=== PATIENT | male | born 1980 | race Caucasian/White ===

== ENCOUNTER 2018-09-21 23:49 | Emergency (ER) | payer BC, OTHER ==
[~2018-09-21] VITALS: Ht 188 cm; Wt 69.9 kg
[~2018-09-21 23:49] MED LIST: HYDR-3720 PO; HYDR1CAP2 PO; NAPR250T34 PO; PENI500T PO
--- NOTE | 2018-09-21 23:50 | NUR ---
2344: LEVEL 1 TRAUMA ACTIVATION. 2350: PT ARRIVES VIA [facility]. PT NOTED TO BE THRASHING ALL FOUR EXTREMITIES. MAINTAINES AIRWAY WITH LABORED BREATHING NOTED. INITIAL GCS 7. 2353: PULLED OUT 18G IV TO RT FOREARM WITH THRASHING MOVEMENT. 2355: 18G IV TO RT A/C ACCESSED. 2356: 4MG VERSED ADM 2357: BP 148/95 P 106 RESP 30 O2 96% VIA 6L NC RECTAL TEMP 98.1. 2359: 100MG SUCCINYLCHOLINE ADM 2359: 4MG VERSED ADM 0006: 100MG ROCURONIUM ADM 0006: 2MG VERSED ADM 0010: CHEST XRAY 0016: 18G IV TO LT A/C ACCESSED BY GERRY MARTINEZ. 0018: 16FR MCCORMACK CATHETER PLACED. URINARY SPECIMEN SENT TO LAB. 0024: DIPRIVAN INITIATED TO RT A/C @ 30MCG/KG/MIN.
[2018-09-21] MEDS ORDERED: SUCCINYLCHOLINE INJ 100 MG/5 ML SYR INJ ONE (23:51)
[2018-09-21] MEDS ORDERED: ROCURONIUM 10 MG/ML 5 ML SYRINGE IV ONE (23:51)
[2018-09-21] MEDS ORDERED: MIDAZOLAM 5 MG/5 ML (VERSED) VIAL INJ ONE (23:51)
--- OUTSIDE RECORDS SUMMARY | 2018-09-21 23:54 | XMS REPORT ---
Author Author AJ ROLLINS [facility] Address Unknown Care Team Providers Care Presser Hand Name Role Phone RIA AJ Unavailable PROBLEMS Unknown Problems ALLERGIES No Known Allergies ENCOUNTERS Encounter Location Date Diagnosis [facility] [address] [facility] [id number] [id number] May, Dental examination Z01.20 and Dental caries K02.9 [facility] [address] [id number] [id number] Apr, IMMUNIZATIONS No Known Immunizations SOCIAL HISTORY Never Assessed REASON FOR VISIT CECILIA PLAN OF CARE Activity Details Follow Up prn Reason:hygiene VITAL SIGNS Blood pressure systolic 122 mmHg 2017-06-22 Blood pressure diastolic 88 mmHg 2017-06-22 MEDICATIONS No Known Medications RESULTS No Results PROCEDURES Procedure Date Ordered Result Body Site LTD ORAL EVALUATION - PROBLEM FOCUS Jun 22, 2017 INTRAORL-PERIAPICAL 1 FILM [id number] Jun 22, 2017 EXTRAC ERUPTED TOOTH/EXPOSED ROOT Jun 22, 2017 BITEWING - SINGLE FILM Jun 22, 2017 INSTRUCTIONS MEDICATIONS ADMINISTERED No Known Medications
[2018-09-22] MEDS ORDERED: PROPOFOL DRIP (ICU) 100 ML IV ONE ×2 (00:19→02:10)
[2018-09-22] MEDS: PROPOFOL DRIP (ICU) 100 ML IV SCH ×2 (00:24→02:35)
--- NOTE | 2018-09-22 00:24 | NUR ---
0024: PT TO CT. STAFF PRESENT INCLUDE GARY, RN. KLEBER, RN. SKY, RAD. LIZZIE, RADJustine ASHTON, RT. DORINDA, RT. DR. ENGLE. RAQUEL, PHARMACOGENETICIST. 0040: WHILE IN CT, VITAL SIGN MONITOR BATTERY DIES AND PREVIOUS V/S ARE LOST. 0050: RETURN FROM CT TO ROOM #3. 0108: 18FR OG PLACED BESIDE ET TUBE. 0108: XRAY CONFIRMATIN OF OG TUBE REVIEWED BY DR. RICHTER. 0112: BACKBOARD CLEARED BY DR. ENGLE. 0118: TETANUS IM INJECTION TO RT DELTOID. 0127: FAMILY @ BEDSIDE.
[2018-09-22 00:28] LABS: HEMOGLOBIN 15.7 G/DL (13.3-17.7); MEAN PLATELET VOLUME 9.2 FL (7.4-10.4); RED CELL DISTRIBUTION WIDTH 13.6 % (10.0-14.5)
[2018-09-22] MEDS ORDERED: TETANUS,DIPTH,PERTUSS P/F (BOOSTRIX) 0.5 ML VIAL IM ONE (00:30)
[2018-09-22 00:36] LABS: BILIRUBIN,URINE NEGATIVE (NEGATIVE); CLARITY,URINE CLEAR; COLOR,URINE YELLOW; GLUCOSE, URINE (UA) 1+ (NEGATIVE); KETONES,URINE 1+ (NEGATIVE); LEUKOCYTE ESTERASE ,URINE NEGATIVE (NEGATIVE); NITRITE,URINE NEGATIVE (NEGATIVE); PH,URINE 5 (5-9); PROTEIN,URINE 4+ (NEGATIVE); UROBILINOGEN,URINE NORMAL (NORMAL)
[2018-09-22 00:48] LABS: ALANINE AMINOTRANSFERASE 18 U/L (0-55); ALBUMIN 4.9 GM/DL (3.2-4.5); ALKALINE PHOSPHATASE 81 U/L (40-136); AMPHETAMINE SCREEN, URINE NEGATIVE (NEGATIVE); BARBITURATE SCREEN URINE NEGATIVE (NEGATIVE); BENZODIAZEPINES SCREEN URINE NEGATIVE (NEGATIVE); BILIRUBIN,DIRECT 0.2 MG/DL (0.0-0.3); BILIRUBIN,INDIRECT 0.1 MG/DL; BILIRUBIN,TOTAL 0.3 MG/DL (0.1-1.0); BUN/CREATININE RATIO 8; CANNABINOID SCREEN, URINE POSITIVE (NEGATIVE); CARBON DIOXIDE 14 MMOL/L (21-32); CHLORIDE 109 MMOL/L (98-107); COCAINE SCREEN URINE NEGATIVE (NEGATIVE); CREATINE KINASE 327 U/L (30-200); CREATININE SERUM 1.16 MG/DL (0.60-1.30); GFR ESTIMATED > 60; GLUCOSE 168 MG/DL (70-105); MAGNESIUM 2.2 MG/DL (1.8-2.4); METHADONE STAT NEGATIVE (NEGATIVE); METHAMPHETAMINE SCREEN URINE S NEGATIVE (NEGATIVE); OPIATE SCREEN URINE NEGATIVE (NEGATIVE); OXYCODONE STAT NEGATIVE (NEGATIVE); PHOSPHORUS 3.8 MG/DL (2.3-4.7); POTASSIUM 3.1 MMOL/L (3.6-5.0); PROPOXYPHENE STAT NEGATIVE (NEGATIVE); SODIUM 147 MMOL/L (135-145); TOTAL PROTEIN 7.9 GM/DL (6.4-8.2); TRICYCLIC ANTIDEPRESSANTS SCRE NEGATIVE (NEGATIVE)
[2018-09-22 00:49] LABS: FIBRIN DEGRADATION PRODUCTS 0.47 UG/ML (0.00-0.49); PROTHROMBIN TIME PATIENT 13.7 SEC (12.2-14.7)
[2018-09-22 00:52] LABS: AMORPHOUS SEDIMENT,UR LARGE AMOR URATES /LPF; BACTERIA,URINE TRACE /HPF
--- NOTE | 2018-09-22 00:53 | ED Trauma-Multisystem ---
General Stated Complaint: FOUND HANGING Source of Information: EMS, Family Exam Limitations: Other (PT IS OBTUNDED) History of Present Illness Date Seen by Provider: September 21, 2018 Time Seen by Provider: 23:50 Initial Comments PT ARRIVES VIA EMS FROM HOME PT WAS FOUND BY FATHER, HANGING FROM A 1/2 " NYLON ROPE AROUND HIS NECK FATHER STATES HE WAS UNCONSCIOUS AND HIS TONGUE WAS HANGING OUT AND HE WAS NOT MOVING DAD CUT HIM DOWN WITH A ROPE AND EASED HIM DOWN AND LAID HIM ON THE FLOOR DAD STATES HE WAS NOT MOVING, AND DESCRIBES SOME AGONAL TYPE BREATHING INITIALLY , THEN BREATHING IMPROVED A LITTLE DAD STATES THAT THEY BELIEVE THAT HE WAS DRINKING TONIGHT, AND ARE NOT SURE WHAT HE WAS DRINKING OR HOW MUCH DAD STATES THAT THERE HAD BEEN SOME ARGUING, AND PT WENT OUT TO THE SHOP/GARAGE DAD STATES IT WAS APPROXIMATELY "15-20 MINUTES" LATER, THAT HE WENT OUT TO THE SHOP/GARAGE TO CHECK ON HIM AND FOUND HIM HANGING FAMILY DESCRIBES POSTURING, WITH ARMS DRAWN IN PT ALSO HAS SUPERFICIAL CUTS TO HIS RIGHT FOREARM FAMILY REPORTS THAT A YEAR OR TWO AGO, HE DID TRY TO CUT HIS ARM, BUT NEVER WENT THROUGH WITH IT FAMILY STATES HE HAS NEVER SOUGHT ANY KIND OF MENTAL HEALTH CARE THEY DO STATE THAT "SOMETIMES HE GETS IN THESE MOODS" BUT DO NOT ELABORATE FAMILY STATES THAT PT HAS LIVED WITH THEM FOR THE LAST 15 YEARS, AND THEY DO NOT ALLOW DRUGS OR ALCOHOL IN THE HOME AND TO THEIR KNOWLEDGE PT HAS NOT USED EITHER, IN THAT TIME THEY DO REPORT THAT HE USED TO DRINK AND USE METH EMS REPORT THAT PT WAS UNCONSCIOUS AND NOT MOVING WHEN THEY ARRIVED PT ARRIVES IN C-COLLAR EMS REPORT THAT LIGATURE CRUMP ARE AROUND HIS NECK JUST BELOW HIS CAIN EMS REPORTS THAT ENROUTE, PT BEGAN TO TWITCH AND THRASH ABOUT, AND HAD DECORTICATE-TYPE POSTURING PT IS DIAPHORETIC ON ARRIVAL AND THEY REPORT THAT THAT HAS SIGNIFICANTLY INCREASED ENROUTE. EMS REPORT THAT IT APPEARS THAT HE BIT HIS TONGUE AND THERE IS DRIED BLOOD IN HIS MOUTH AND ON HIS LIPS ACCUCHECK 119 BY EMS 2345--DR. COHEN, TRAUMA SURGEON, CONTACTED PRIOR TO ARRIVAL, FOR LEVEL 1 TRAUMA ACTIVATION Allergies and Home Medications Allergies Coded Allergies: No Known Drug Allergies (Unverified Allergy, Mild, 01/27/09) Home Medications Hydrocodone Bit/Acetaminophen 1 Each Capsule, 1 EACH PO Q4H Prescribed by: GILMA NEIL MD on 03/24/091900 Penicillin V Potassium 500 Mg Tablet, 1 TAB PO TID Prescribed by: GILMA NEIL MD on 03/24/091900 Patient Home Medication List Home Medication List Reviewed: Yes Review of Systems Review of Systems Constitutional: other (UNABLE TO OBTAIN) Past Evnfjhy-Todral-Uqshvo Hx Patient Social History Alcohol Use: Past History (PER PARENTS ON 09/22/18) Recreational Drug Use: Yes (METH BY HISTORY, PER PARENTS ON 09/22/18) Drug of Choice: HX OF METH USE, PER PARENTS ON 09/22/18 Smoking Status: Current Everyday Smoker (1 PPD) Type Used: Cigarettes Recent Foreign Travel: No Contact w/Someone Who Travel: No Immunizations Up To Date Tetanus Booster (TDap): Unknown Past Medical History Surgeries: No Respiratory: No Cardiac: No Neurological: No Genitourinary: No Gastrointestinal: No Musculoskeletal: No Endocrine: No HEENT: No Cancer: No Psychosocial: Yes (SUICIDE ATTEMPT BY HANGING 09/21/18) Suicide Attempts Physical Exam Vital Signs Vital Signs - First Documented 09/21/18 23:50 Pulse Ox 96 O2 Delivery Nasal Cannula O2 Flow Rate 6.00 Height, Weight, BMI Height: '" Weight: lbs. oz. kg; BMI Method: General Appearance: Severe Distress, Other (PT OBTUNDED, THRASHING AND JERKING WITH SOME DECORTICATE POSTURING, HEAD AND EYES DEVIATED TO RIGHT, PT IS PROFUSELY DIAPHORETIC; REEKS OF ETOH) Head: No Evidence of Injury Eyes: Bilateral Eye Other (PUPILS 5MM AND EQUAL BUT NON-REACTIVE, EYES DEVIATED TO RIGHT) Ears, Nose, Throat: Other (DRIED BLOOD ON TONGUE AND LIPS. ) Neck: Other (PT IN CERVICAL COLLAR ON ARRIVAL--UNABLE TO VIEW NECK, TRACHEA IS MIDLINE AND NO CREPITANCE OR SUB Q AIR NOTED. ) Cardiovascular: Tachycardia Respiratory: Other (HYPERVENTILATING) Gastrointestinal: Soft Skin: Cool, Diaphoresis, Pallor [place] Coma Score Best Eye Response ([place]): (1) No Response Best Verbal Response ([place]): (1) No Verbal Response Best Motor Response ([place]): (1) No Motor Response (PT IS THRASHING AND JERKING AND HAS DECORTICATE POSTURING, BUT DOES NOT ACTUALLY REACT TO PAIN STIMULUS) Focused Exam Lactate Level 09/22/18 01:17: Lactic Acid Level 4.73*H Lactic Acid Level Laboratory Tests Test 09/22/18 01:17 Lactic Acid Level 4.73 MMOL/L (0.50-2.00) *H Procedures/Interventions Intubation Method: orotracheal Tube Size: 7.5 Medications: Rocuronium, Succinylcholine, Versed Positive End Tide CO2: Yes Breath Sounds after Intubation: bilateral-equal Intubation Complications: no complications Post Intubation Xray: Yes (ADEQUATE TUBE PLACEMENT) INTUBATION ATTEMPTS X 2 UNSUCCESSFUL BY MOLD SANDER, PRIOR TO DIRECTOR DERMATOLOGY ARRIVAL SUCCESSFUL INTUBATION WITH DIRECTOR DERMATOLOGY ASSIST USING GLIDESCOPE X 1 ATTEMPT Progress/Results/Core Measures Results/Orders Lab Results Laboratory Tests Test 09/22/18 00:17 09/22/18 01:03 09/22/18 01:17 09/22/18 01:50 Range/Units White Blood Count 16.0 H 4.3-11.0 10^3/uL Red Blood Count 4.91 4.35-5.85 10^6/uL Hemoglobin 15.7 13.3-17.7 G/DL Hematocrit 45 40-54 % Mean Corpuscular Volume 93 80-99 FL Mean Corpuscular Hemoglobin 32 25-34 PG Mean Corpuscular Hemoglobin Concent 35 32-36 G/DL Red Cell Distribution Width 13.6 10.0-14.5 % Platelet Count 304 130-400 10^3/uL Mean Platelet Volume 9.2 7.4-10.4 FL Prothrombin Time 13.7 12.2-14.7 SEC INR Comment 1.0 0.8-1.4 Activated Partial Thromboplast Time 24 24-35 SEC Fibrinogen 346 221-496 MG/DL D-Dimer 0.47 0.00-0.49 UG/ML Urine Color YELLOW Urine Clarity CLEAR Urine pH 5 5-9 Urine Specific [place] 1.025 H 1.016-1.022 Urine Protein 4+ NEGATIVE Urine Glucose (UA) 1+ H NEGATIVE Urine Ketones 1+ H NEGATIVE Urine Nitrite NEGATIVE NEGATIVE Urine Bilirubin NEGATIVE NEGATIVE Urine Urobilinogen NORMAL NORMAL MG/DL Urine Leukocyte Esterase NEGATIVE NEGATIVE Urine RBC (Auto) 2+ H NEGATIVE Urine RBC 5-10 H /HPF Urine WBC NONE /HPF Urine Crystals PRESENT H /LPF Urine Amorphous Sediment LARGE RADHA URATES H /LPF Urine Bacteria TRACE /HPF Urine Casts PRESENT /LPF Urine Hyaline Casts 10-25 H /LPF Urine Coarse Granular Casts 0-2 H /LPF Urine Mucus NEGATIVE /LPF Urine Culture Indicated NO Sodium Level 147 H 135-145 MMOL/L Potassium Level 3.1 L 3.6-5.0 MMOL/L Chloride Level 109 H 98-107 MMOL/L Carbon Dioxide Level 14 L 21-32 MMOL/L Anion Gap 24 H 5-14 MMOL/L Blood Urea Nitrogen 9 7-18 MG/DL Creatinine 1.16 0.60-1.30 MG/DL Estimat Glomerular Filtration Rate > 60 BUN/Creatinine Ratio 8 Glucose Level 168 H 70-105 MG/DL Calcium Level 9.0 8.5-10.1 MG/DL Phosphorus Level 3.8 2.3-4.7 MG/DL Magnesium Level 2.2 1.8-2.4 MG/DL Total Bilirubin 0.3 0.1-1.0 MG/DL Direct Bilirubin 0.2 0.0-0.3 MG/DL Indirect Bilirubin 0.1 MG/DL Aspartate Amino Transf (AST/SGOT) 26 5-34 U/L Alanine Aminotransferase (ALT/SGPT) 18 0-55 U/L Alkaline Phosphatase 81 40-136 U/L Total Creatine Kinase 327 H 30-200 U/L Troponin I < 0.028 <0.028 NG/ML Total Protein 7.9 6.4-8.2 GM/DL Albumin 4.9 H 3.2-4.5 GM/DL Urine Opiates Screen NEGATIVE NEGATIVE Urine Oxycodone Screen NEGATIVE NEGATIVE Urine Methadone Screen NEGATIVE NEGATIVE Urine Propoxyphene Screen NEGATIVE NEGATIVE Urine Barbiturates Screen NEGATIVE NEGATIVE Ur Tricyclic Antidepressants Screen NEGATIVE NEGATIVE Urine Phencyclidine Screen NEGATIVE NEGATIVE Urine Amphetamines Screen NEGATIVE NEGATIVE Urine Methamphetamines Screen NEGATIVE NEGATIVE Urine Benzodiazepines Screen NEGATIVE NEGATIVE Urine Cocaine Screen NEGATIVE NEGATIVE Urine Cannabinoids Screen POSITIVE H NEGATIVE Serum Alcohol 93 H <10 MG/DL Blood Gas Puncture Site LT RAD RT RAD Blood Gas Patient Temperature 37 C 97.1 Arterial Blood pH 7.08 *L 7.32 *L 7.37-7.43 Arterial Blood Partial Pressure CO2 79 *H 44 35-45 MMHG Arterial Blood Partial Pressure O2 450 H 82 79-93 MMHG Arterial Blood HCO3 22 L 22 L 23-27 MMOL/L Arterial Blood Total CO2 24.8 23.6 21.0-31.0 MMOL/L Arterial Blood Oxygen Saturation 100 96 94-100 % Arterial Blood Base Excess -6.3 L -3.1 L -2.5-2.5 MMOL/L [place] Test YES-POS YES-POS Blood Gas Ventilator Setting YES YES Blood Gas Inspired Oxygen 100% 40% Lactic Acid Level 4.73 *H 0.50-2.00 MMOL/L My Orders Orders - YESI RICHTER DO Chest 1 View, Ap/Pa Only (09/22/18 ) Ct Head/Cervical Spine Wo (09/22/18 ) Ed Iv/Invasive Line Start (09/22/18 00:12) Ekg Tracing (09/22/18 00:12) Catheter(Urinary) Insert & Ass 03,15 (09/22/18 00:12) Ng Tube Insert & Assessment (09/22/18 00:12) O2 (09/22/18 00:12) Monitor-Rhythm Ecg Trace Only (09/22/18 00:12) Ct Chest Wo (09/22/18 ) Dipht,Pertuss(Acell),Tet Adult (Boostrix (09/22/18 00:30) Cbc No Diff (09/22/18 00:17) Fibrin Degradation Products (09/22/18 00:17) Fibrinogen (09/22/18 00:17) Protime With Inr (09/22/18 00:17) Partial Thromboplastin Time (09/22/18 00:17) Drug Screen Stat (Urine) (09/22/18 00:17) Urinalysis (09/22/18 00:17) Alcohol (09/22/18 00:17) Basic Metabolic Panel (09/22/18 00:17) Cardiac Profile 1 (09/22/18 00:17) Creatine Kinase (09/22/18 00:17) Liver Panel (09/22/18 00:17) Magnesium (09/22/18 00:17) Phosphorus (09/22/18 00:17) Lactic Acid Analyzer (09/22/18 00:17) Red Cells Leukocytes Reduced (09/22/18 00:17) Type And Screen (09/22/18 00:17) Chest 1 View, Ap/Pa Only (09/22/18 00:53) Arterial Blood Gas (09/22/18 01:03) Midazolam Injection (Versed Injection) (09/22/18 01:26) 1/2 Ns W/Kcl 20 Meq/L (0.45% Sodium Chlo (09/22/18 01:45) Arterial Blood Gas (09/22/18 01:50) Midazolam Injection (Versed Injection) (09/22/18 02:06) Medications Given in ED Current Medications Medications Dose Ordered Sig/Brandyn Route Start Time Stop Time Status Last Admin Dose Admin Diphtheria/ Tetanus/Acell Pertussis 0.5 ml ONCE ONCE IM 09/22/18 00:30 09/22/18 00:31 DC 09/22/18 01:18 0.5 ML Midazolam HCl 5 mg STK-MED ONCE .ROUTE 09/22/18 01:26 09/22/18 01:30 DC 09/22/18 01:30 5 MG Midazolam HCl 5 mg STK-MED ONCE .ROUTE 09/22/18 02:06 09/22/18 02:10 DC 09/22/18 02:10 5 MG Vital Signs/I&O 09/21/18 23:50 Pulse Ox 96 O2 Delivery Nasal Cannula O2 Flow Rate 6.00 09/22/18 00:00 Intake Total 200 ml Balance 200 ml Progress Progress Note : Progress Note SEE TRAUMA NOTES PT ARRIVES IN CERVICAL COLLAR, AND THIS WAS KEPT IN PLACE AT ALL TIMES PT INTUBATED ON ARRIVAL PT'S HEART RATE DOWN TO 110'S, FROM 160'S ON ARRIVAL BP DOWN TO 117/79 FROM 200'S/100'S ON ARRIVAL O2 SATS 98-100 ON VENTILATOR PT NO LONGER DIAPHORETIC' CORE TEMP 97.7 F/36.5 C Initial ECG Impression Date: September 22, 2018 Initial ECG Impression Time: 01:19 Initial ECG Rate: 115 Initial ECG Rhythm: S.Tach Diagnostic Imaging Comments CXR X 2--ADEQUATE ET AND NG TUBE POSITIONS, NO ACUTE PROCESS--PENDING RADIOLOGIST REVIEW CT HEAD/CERVICAL SPINE--NO ACUTE INJURY, PER [facility] VIA FAX AT 0114 CT CHEST --NO ACUTE INJURY, ET TUBE IN PLACE, PER [facility] VIA FAX @ 0126 Reviewed: Reviewed by Me Critical Care Note Critical Care Start Time: 23:50 Departure Communication (Admissions) 0004--Amirah DIRECTOR DERMATOLOGY STUDENT HERE TO ASSIST WITH INTUBATION 0010--DR. COHEN HERE, CARE TURNED OVER TO HIM 0115--VICKI HANSON HAS LEFT. 0115--CALLED [facility], FAMILY PREFERENCE. 0130--SPOKE WITH DR. TEJADA, ER PHYSICIAN, ACCEPTS PT FOR TRANSFER Impression Primary Impression: Intentional self-harm by hanging Additional Impressions: Asphyxiation due to hanging, intentional self-harm ANOXIA DUE TO SELF HANGING ETOH INTOXICATION THC USE Electrolyte imbalance Acidosis Disposition: 02 XFER SHT-TRM HOSP Condition: Critical Transfer Transfer Facility: [facility] Method of Transfer: EMS Departure-Patient Inst. Referrals: NO,LOCAL PHYSICIAN (PCP/Family) Primary Care Physician YESI RICHTER DO September 22, 2018 00:53
[2018-09-22 01:07] LABS: ABG BASE EXCESS -6.3 MMOL/L (-2.5-2.5); ABG OXYGEN SATURATION 100 % (94-100); ABG PO2 450 MMHG (79-93); ABG TCO2 24.8 MMOL/L (21.0-31.0)
[2018-09-22 01:12] LABS: ABG PCO2 79 MMHG (35-45); ABG PH 7.08 (7.37-7.43); ALLENS TEST YES-POS; INSPIRED O2 100%; PATIENT TEMP 37 C; VENTILATOR YES
--- NOTE | 2018-09-22 01:22 | NUR ---
ATTEMPTED TO CONTACT SKID WORKER ENERGY TECHNICIAN WITH NO ANSWER.
[2018-09-22] MEDS ORDERED: MIDAZOLAM 5 MG/5 ML (VERSED) VIAL ONE ×2 (01:26→02:06)
--- NOTE | 2018-09-22 01:32 | HISTORY AND PHYSICAL ---
DATE OF SERVICE: HISTORY OF PRESENT ILLNESS: The patient is a 37-year-old male who was brought in by EMS after his father found his son hanging with a half inch nylon rope around his neck; however, his feet were on the ground. He was unconscious and not moving. He was cut from the rope and the father states that he was not moving; however, he did initially start some agonal breathing, which did improve over time. The father had reported that he believed that he was drinking alcohol and they had an argument in the garage and then he returned approximately 15 minutes later and found him hanging. EMS was called and brought in with a C-spine and backboard. He was intubated and did have some garbling sounds and was moving all four extremities and after intubation, he was sedated. He did not have any eye movements, so his [place] coma scale upon admission was 5. CT scan of the head, neck and the upper chest were performed. Preliminarily did not show any bony defects or fractures or any subluxations. PAST MEDICAL HISTORY: None known. PAST SURGICAL HISTORY: None known. ALLERGIES: No known drug allergies. MEDICATIONS: Hydrocodone p.r.n., penicillin 500 mg t.i.d. SOCIAL HISTORY: Positive alcohol. FAMILY HISTORY: Noncontributory. REVIEW OF SYSTEMS: The patient was evaluated after intubation and sedation. He has palpable pulses of distal extremities. He has normal chest excursion with the Ambu bag. Good breath sounds bilaterally. Upon examination of the neck, there is no crepitance with palpable carotid pulses bilaterally. His pupils do react to light. After being intubated and sedated, he does not respond to any painful stimuli. PHYSICAL EXAMINATION: CHEST: Good breath sounds bilaterally. HEART: Tachycardic, no murmurs. EXTREMITIES: There did not appear to be any step offs or deformities. HEENT: He has a cervical collar on. However, upon examination, there does not appear to be any crepitance or any edema, swelling or pulsatile masses. ABDOMEN: Soft, nontender, nondistended. NEUROLOGIC: [place] coma scale of 5. It is hard to ascertain any focal deficits while being on rocuronium and Diprivan drip. LABORATORY DATA: WBC 16.0, hemoglobin 15.7, hematocrit 45, platelets 304. BUN 9, creatinine 1.16, creatinine kinase 327, positive cannabinoid and serum alcohol 93. ASSESSMENT AND PLAN: A 37-year-old male with attempted hanging. At this time, his cardiorespiratory status appears to be intact; however, we cannot ascertain his neurologic function at this time. CT scan of the head, neck and chest were performed and preliminary there does not appear to be any fractures or subluxations; however, we will wait the official radiology report. We also will transfer him to a center with a neurologic ICU for further evaluation and management. Job ID: [id number] DocumentID: [id number] Dictated Date: 09/22/2018 01:03:30 Brine Room Laborer Date: 09/22/2018 01:31:08 Dictated By: MIO COHEN MD
[2018-09-22] MEDS ORDERED: 1/2 NS W/KCL 20 MEQ/L 1,000 ML IV ONE (01:37)
[2018-09-22] MEDS ORDERED: 1/2 NS W/KCL 20 MEQ/L 1,000 ML IV SCH (01:45)
[2018-09-22 01:56] LABS: ABG BASE EXCESS -3.1 MMOL/L (-2.5-2.5); ABG OXYGEN SATURATION 96 % (94-100); ABG PCO2 44 MMHG (35-45); ABG PO2 82 MMHG (79-93); ABG TCO2 23.6 MMOL/L (21.0-31.0)
[2018-09-22 01:57] LABS: ABG PH 7.32 (7.37-7.43); ALLENS TEST YES-POS; INSPIRED O2 40%; PATIENT TEMP 97.1; VENTILATOR YES
[2018-09-22 02:35] VITALS: BP 128/88
--- NOTE | 2018-09-22 05:26 | Diagnostic Imaging Report ---
INDICATION: Near hanging Portable chest 12:11 AM There is an ET tube projecting over the trachea. The tip is just above the anne. Heart size and pulmonary vascularity are normal. Lungs are clear. There are no effusions or pneumothoraces. IMPRESSION: No acute abnormalities in the chest Dictated by: Dictated on workstation # [id number]
--- NOTE | 2018-09-22 05:45 | Diagnostic Imaging Report ---
PROCEDURE: CT head and CT cervical spine without contrast. TECHNIQUE: Multiple contiguous axial images were obtained through the brain and cervical spine without the use of intravenous contrast. Sagittal and coronal reformations through the cervical spine were then performed. Auto Exposure Controls were utilized during the CT exam to meet ALARA standards for radiation dose reduction. INDICATION: Hanging injury. CT head: The ventricles are normal in size, shape and position. There are no masses or hemorrhages. There are no extra-axial fluid collections. IMPRESSION: Negative CT head. CT cervical spine: Vertebral body height and alignment are normal. Disc spaces are normal. There is no fracture or prevertebral soft tissue swelling. IMPRESSION: Negative CT cervical spine. I agree with preliminary interpretation. Dictated by: Dictated on workstation # [id number]
--- NOTE | 2018-09-22 05:46 | Diagnostic Imaging Report ---
INDICATION: Near hanging. Portable chest 1:09 AM FINDINGS: There is ET tube projecting over the trachea. NG tube projects over the stomach. Heart size and pulmonary vascularity are normal. Lungs are clear. There are no effusions or pneumothoraces. IMPRESSION: Negative chest. Dictated by: Dictated on workstation # [id number]
--- NOTE | 2018-09-22 05:52 | Diagnostic Imaging Report ---
PROCEDURE: CT chest without contrast. TECHNIQUE: Multiple contiguous axial images were obtained through the chest without the use of intravenous contrast. Auto Exposure Controls were utilized during the CT exam to meet ALARA standards for radiation dose reduction. INDICATION: Near hanging. FINDINGS: There is ET tube in the trachea. There is gaseous distention of stomach. There is some atelectasis at both lung bases. There are tiny bilateral pleural effusions layering out to depth of less than centimeter. There are emphysematous changes in lung apices. There is large bullae in the upper medial chest measuring 3 cm in diameter. IMPRESSION: Distended stomach. COPD. Basilar atelectasis and effusions. I agree with preliminary interpretation. Dictated by: Dictated on workstation # [id number]
== END 2018-09-22 02:35 | disposition short-term general hospital (02) ==
LOC: EDUNIT# 23:49 → ER 23:50
DX: T71.162A Asphyxiation due to hanging, intentional self-harm, initial encounter (principal); F10.129 Alcohol abuse with intoxication, unspecified; F12.90 Cannabis use, unspecified, uncomplicated; E87.8 Other disorders of electrolyte and fluid balance, not elsewhere classified; E87.2 Acidosis; R40.2112 Coma scale, eyes open, never, at arrival to emergency department; R40.2212 Coma scale, best verbal response, none, at arrival to emergency department; R40.2312 Coma scale, best motor response, none, at arrival to emergency department; F17.210 Nicotine dependence, cigarettes, uncomplicated; Z91.5 Personal history of self-harm; Z23 Encounter for immunization; X83.8XXA Intentional self-harm by other specified means, initial encounter; Y92.009 Unspecified place in unspecified non-institutional (private) residence as the place of occurrence of the external cause
CPT/HCPCS: 31500; 36415; 36600; 51702; 70450; 71045; 71250; 72125; 80048; 80076; 80306; 80320; 81000; 82550; 82805; 83605; 83735; 84100; 84484; 85027; 85379; 85384; 85610; 85730; 86850; 86900; 86901; 90715; 93005; 93041; 99291; 99292

== ENCOUNTER 2020-10-09 23:26 | Emergency (ER) | payer SELFPAY ==
[~2020-10-09] VITALS: Ht 170.1 cm; Wt 90.7 kg
--- NOTE | 2020-10-10 00:14 | ED Abdominal Pain ---
General Chief Complaint: Abdominal/GI Problems Stated Complaint: ABD PAIN Source of Information: Patient Exam Limitations: No Limitations History of Present Illness Date Seen by Provider: October 09, 2020 Time Seen by Provider: 23:51 Initial Comments Patient is a very pleasant gentleman who reports the ER because he started having epigastric abdominal pain that was sharp doubling him over and accompanied with some mild nausea but no vomiting in the past hour. He has since passed since he arrived here. He did not take anything for it. He says he ate dinner about 8:00, 3 hours prior and had a hot dog. Never had this before. No history of abdominal surgeries. No fevers chills nausea vomiting diarrhea presently. Last bowel movement was yesterday, normal formed. No sick contacts. No one else got sick. He does not have a doctor nor does he take any medications routinely. Allergies and Home Medications Allergies Coded Allergies: No Known Drug Allergies (Unverified , 01/27/09) Home Medications Hydrocodone Bit/Acetaminophen 1 Each Capsule, 1 EACH PO Q4H Prescribed by: GILMA NEIL MD on 03/24/091900 Penicillin V Potassium 500 Mg Tablet, 1 TAB PO TID Prescribed by: GILMA NEIL MD on 03/24/091900 Patient Home Medication List Home Medication List Reviewed: Yes Review of Systems Review of Systems Constitutional: No chills, No fever EENTM: No Blurred Vision, No Double Vision Respiratory: Denies Cough, Denies Shortness of Air Cardiovascular: Denies Chest Pain, Denies Lightheadedness Gastrointestinal: See HPI, Abdominal Pain; Denies Constipated, Denies Diarrhea; Nausea Genitourinary: Denies Burning, Denies Discharge Musculoskeletal: No back pain, No joint pain All Other Systems Reviewed Negative Unless Noted: Yes Past Mkszqkm-Lpeqcg-Qbcvyf Hx Patient Social History Alcohol Use: Denies Use Drug of Choice: HX OF METH USE, PER PARENTS ON 09/22/18 Smoking Status: Current Everyday Smoker Type Used: Cigarettes 2nd Hand Smoke Exposure: Yes Recent Hopitalizations: No Immunizations Up To Date Tetanus Booster (TDap): Unknown Seasonal Allergies Seasonal Allergies: No Past Medical History Surgeries: No Respiratory: No Cardiac: No Neurological: No Genitourinary: No Gastrointestinal: No Musculoskeletal: No Endocrine: No HEENT: No Cancer: No Psychosocial: Yes (SUICIDE ATTEMPT BY HANGING 09/21/18) Suicide Attempts Integumentary: No Physical Exam Vital Signs Capillary Refill : Height/Weight/BMI Height: 6'2.00" Weight: 154lbs. oz. [id number]; 14.06 BMI Method:Estimated General Appearance: WD/WN, no apparent distress HEENT: PERRL/EOMI, pharynx normal Neck: non-tender, full range of motion Respiratory: no respiratory distress, no accessory muscle use Cardiovascular: normal peripheral pulses, regular rate, rhythm Peripheral Pulses: 2+ Radial Pulses (R), 2+ Radial Pulses (L) Gastrointestinal: normal bowel sounds, non tender, soft, other (Negative for Rovsing sign, McBurney's point tenderness, Kaye sign, psoas sign or other m esenteric signs.) Extremities: normal inspection, normal capillary refill Neurologic/Psychiatric: alert, normal mood/affect, oriented x 3 Skin: normal color, warm/dry Procedures/Interventions Date of ETT Placement: September 22, 2018 Time of ETT Placement: 0005 Progress/Results/Core Measures Results/Orders Lab Results Laboratory Tests Test 10/10/20 00:04 Range/Units White Blood Count 12.4 H 4.3-11.0 10^3/uL Red Blood Count 4.89 4.30-5.52 10^6/uL Hemoglobin 15.1 13.3-17.7 g/dL Hematocrit 44 40-54 % Mean Corpuscular Volume 91 80-99 fL Mean Corpuscular Hemoglobin 31 25-34 pg Mean Corpuscular Hemoglobin Concent 34 32-36 g/dL Red Cell Distribution Width 13.0 10.0-14.5 % Platelet Count 284 130-400 10^3/uL Mean Platelet Volume 8.8 L 9.0-12.2 fL Immature Granulocyte % (Auto) 0 % Neutrophils (%) (Auto) 71 42-75 % Lymphocytes (%) (Auto) 21 12-44 % Monocytes (%) (Auto) 7 0-12 % Eosinophils (%) (Auto) 1 0-10 % Basophils (%) (Auto) 1 0-10 % Neutrophils # (Auto) 8.8 H 1.8-7.8 10^3/uL Lymphocytes # (Auto) 2.6 1.0-4.0 10^3/uL Monocytes # (Auto) 0.9 0.0-1.0 10^3/uL Eosinophils # (Auto) 0.1 0.0-0.3 10^3/uL Basophils # (Auto) 0.1 0.0-0.1 10^3/uL Immature Granulocyte # (Auto) 0.0 0.0-0.1 10^3/uL Sodium Level 139 135-145 MMOL/L Potassium Level 4.3 3.6-5.0 MMOL/L Chloride Level 104 98-107 MMOL/L Carbon Dioxide Level 27 21-32 MMOL/L Anion Gap 8 5-14 MMOL/L Blood Urea Nitrogen 8 7-18 MG/DL Creatinine 0.96 0.60-1.30 MG/DL Estimat Glomerular Filtration Rate > 60 BUN/Creatinine Ratio 8 Glucose Level 93 70-105 MG/DL Calcium Level 9.6 8.5-10.1 MG/DL Corrected Calcium 9.3 8.5-10.1 MG/DL Total Bilirubin 0.3 0.1-1.0 MG/DL Aspartate Amino Transf (AST/SGOT) 12 5-34 U/L Alanine Aminotransferase (ALT/SGPT) 13 0-55 U/L Alkaline Phosphatase 71 40-136 U/L C-Reactive Protein High Sensitivity 0.15 0.00-0.50 MG/DL Total Protein 7.1 6.4-8.2 GM/DL Albumin 4.4 3.2-4.5 GM/DL My Orders Orders - CORA MARTÍNEZ Cbc With Automated Diff (10/10/20 00:05) Comprehensive Metabolic Panel (10/10/20 00:05) Hs C Reactive Protein (10/10/20 00:05) Pantoprazole Tablet (Protonix Tablet) (10/10/20 00:15) Lidocaine 2% Viscous 15 Ml (Xylocaine Vi (10/10/20 01:45) Pepcid Po (10/10/20 01:41) Mylanta Po (10/10/20 01:45) Medications Given in ED Current Medications Medications Dose Ordered Sig/Brandyn Route Start Time Stop Time Status Last Admin Dose Admin Pantoprazole Sodium 40 mg ONCE ONCE PO 10/10/20 00:15 10/10/20 00:16 DC 10/10/20 00:21 40 MG Progress Progress Note #1: Time: 00:10 Progress Note Patient has a septic vital signs and nonacute abdominal exam. We will get some basic labs and if they are unremarkable we will have him follow-up outpatient with general surgery to consider a work-up of his gallbladder or possibly gastritis. Pantoprazole 40 mg p.o. x1. Progress Note #2: Time: 01:40 Progress Note Patient says he gets some burning pain in his epigastric region after he drank some water so we will give him a GI cocktail and put him out on pantoprazole and Carafate. Departure Impression Primary Impression: Biliary colic symptom Disposition: HOME, SELF-CARE Condition: Stable Departure-Patient Inst. Decision time for Depature: 01:10 Referrals: MARLENA SALMERON DO NO,LOCAL PHYSICIAN (PCP) Primary Care Physician Patient Instructions: Gallbladder Diet Add. Discharge Instructions: While we do not precisely know what caused your pain I suspect it may be a symptom of your gallbladder. Read the diet instructions. Avoid spicy, greasy foods especially dairy. Tomorrow call Dr. Salmeron and request a follow-up appointment in the clinic to further work-up your abdominal pain. If the symptoms return I suggest you take an antacid such as Tums, Rolaids, Mylanta, Maalox etc. Tylenol 1000 mg every 8 hours as necessary for pain. Ibuprofen 800 mg every 8 hours as necessary for pain. Warm heating pads may also be helpful for pain. If you have intractable or worrisome new other symptoms then please return to the nearest ER for further evaluation. Your symptoms could also be as a result of irritation to the lining of your stomach such as from an ulcer. Start taking pantoprazole 20 mg twice a day for the next 4 weeks while you are working this up. This should help reduce the amount of acid your stomach produces. Carafate half an hour before meals and at bedtime for the next 2 weeks. This should help protect the lining of your stomach. All discharge instructions reviewed with patient and/or family. Voiced understanding. Scripts Sucralfate (Carafate) 1 Gm Tablet 1 GM PO QID for 14 Days, #56 TAB 0 Refills Prov: CORA MARTÍNEZ 10/10/20 Pantoprazole Sodium (Pantoprazole Sodium) 20 Mg Tablet.dr 20 MG PO BID for 30 Days, #60 TAB 0 Refills Prov: CORA MARTÍNEZ 10/10/20 Copy Copies To 1: MARLENA SALMERON DO CORA MARTÍNEZ October 10, 2020 00:13
[2020-10-10] MEDS: PANTOPRAZOLE 40 MG (PROTONIX) TAB PO ONE (00:21)
[2020-10-10 00:23] LABS: BASOPHILS # (AUTO) 0.1 10^3/uL (0.0-0.1); BASOPHILS % (AUTO) 1 % (0-10); EOSINOPHILS # (AUTO) 0.1 10^3/uL (0.0-0.3); EOSINOPHILS % (AUTO) 1 % (0-10); HEMATOCRIT 44 % (40-54); HEMOGLOBIN 15.1 g/dL (13.3-17.7); LYMPHOCYTES # (AUTO) 2.6 10^3/uL (1.0-4.0); LYMPHOCYTES % (AUTO) 21 % (12-44); MEAN CORPUSCULAR HEMOGLOBIN 31 pg (25-34); MEAN CORPUSCULAR HGB CONC 34 g/dL (32-36); MEAN CORPUSCULAR VOLUME 91 fL (80-99); MEAN PLATELET VOLUME 8.8 fL (9.0-12.2); MONOCYTES # (AUTO) 0.9 10^3/uL (0.0-1.0); MONOCYTES % (AUTO) 7 % (0-12); NEUTROPHILS # (AUTO) 8.8 10^3/uL (1.8-7.8); NEUTROPHILS % (AUTO) 71 % (42-75); PLATELET COUNT 284 10^3/uL (130-400); WHITE BLOOD COUNT 12.4 10^3/uL (4.3-11.0)
[2020-10-10 00:36] LABS: ALBUMIN 4.4 GM/DL (3.2-4.5); CHLORIDE 104 MMOL/L (98-107); POTASSIUM 4.3 MMOL/L (3.6-5.0); SODIUM 139 MMOL/L (135-145)
[2020-10-10 00:37] LABS: CALCIUM 9.6 MG/DL (8.5-10.1)
[2020-10-10 00:38] LABS: GLUCOSE 93 MG/DL (70-105); TOTAL PROTEIN 7.1 GM/DL (6.4-8.2)
[2020-10-10 00:39] LABS: CARBON DIOXIDE 27 MMOL/L (21-32)
[2020-10-10 00:40] LABS: BILIRUBIN,TOTAL 0.3 MG/DL (0.1-1.0)
[2020-10-10 00:42] LABS: ALKALINE PHOSPHATASE 71 U/L (40-136); CREATININE SERUM 0.96 MG/DL (0.60-1.30); GFR ESTIMATED > 60
[2020-10-10 00:43] LABS: BUN/CREATININE RATIO 8
[2020-10-10 00:45] LABS: ALANINE AMINOTRANSFERASE 13 U/L (0-55)
[2020-10-10] MEDS ORDERED: PANT20TA18 PO (01:44)
[2020-10-10] MEDS ORDERED: SUCR1TAB36 PO (01:44)
[2020-10-10] MEDS: LIDOCAINE 2% VISCOUS 15 ML UDC PO ONE (01:58)
[2020-10-10] MEDS: ANTACID SUSP 30 ML UDC (MYLANTA) PO ONE (01:59)
[2020-10-10] MEDS: FAMOTIDINE 20 MG (PEPCID) TABLET PO STA (01:59)
[2020-10-10 02:02] VITALS: BP 143/95
== END 2020-10-10 02:02 | disposition home or self-care (01) ==
LOC: EDUNIT# 23:26 → ER 23:30
DX: R10.13 Epigastric pain (principal); R11.0 Nausea; F17.210 Nicotine dependence, cigarettes, uncomplicated
CPT/HCPCS: 36415; 80053; 85025; 86141

== ENCOUNTER 2021-05-03 13:54 | Emergency (ER) | payer SELFPAY ==
[~2021-05-03] VITALS: Ht 170 cm; Wt 77.0 kg
[~2021-05-03 13:54] MED LIST changes: +PANT20TA18 PO; +SUCR1TAB36 PO
[2021-05-03 14:42] LABS: BASOPHILS # (AUTO) 0.1 10^3/uL (0.0-0.1); BASOPHILS % (AUTO) 0 % (0-10); EOSINOPHILS % (AUTO) 0 % (0-10); HEMATOCRIT 49 % (40-54); HEMOGLOBIN 17.2 g/dL (13.3-17.7); LYMPHOCYTES # (AUTO) 2.1 10^3/uL (1.0-4.0); LYMPHOCYTES % (AUTO) 18 % (12-44); MEAN CORPUSCULAR HEMOGLOBIN 31 pg (25-34); MEAN CORPUSCULAR HGB CONC 35 g/dL (32-36); MEAN CORPUSCULAR VOLUME 88 fL (80-99); MEAN PLATELET VOLUME 9.3 fL (9.0-12.2); MONOCYTES # (AUTO) 0.6 10^3/uL (0.0-1.0); MONOCYTES % (AUTO) 5 % (0-12); NEUTROPHILS # (AUTO) 9.1 10^3/uL (1.8-7.8); NEUTROPHILS % (AUTO) 76 % (42-75); PLATELET COUNT 328 10^3/uL (130-400); WHITE BLOOD COUNT 11.9 10^3/uL (4.3-11.0)
[2021-05-03] MEDS ORDERED: ONDANSETRON 4 MG/2 ML (SDV) Z0FRAN IVP ONE (14:45)
[2021-05-03] MEDS ORDERED: NS IV 1000 ML 1,000 ML IV SCH (14:45)
[2021-05-03] MEDS ORDERED: KETOROLAC 30 MG/ML VIAL IVP ONE (14:45)
[2021-05-03 14:47] LABS: ALBUMIN 4.8 GM/DL (3.2-4.5); CHLORIDE 101 MMOL/L (98-107); POTASSIUM 3.8 MMOL/L (3.6-5.0); SODIUM 137 MMOL/L (135-145)
[2021-05-03 14:49] LABS: GLUCOSE 101 MG/DL (70-105); TOTAL PROTEIN 8.4 GM/DL (6.4-8.2)
[2021-05-03 14:51] LABS: BILIRUBIN,TOTAL 1.1 MG/DL (0.1-1.0); CARBON DIOXIDE 22 MMOL/L (21-32)
[2021-05-03 14:53] LABS: ALKALINE PHOSPHATASE 84 U/L (40-136); CREATININE SERUM 0.98 MG/DL (0.60-1.30); GFR ESTIMATED 85
[2021-05-03 14:54] LABS: BUN/CREATININE RATIO 6
[2021-05-03 14:56] LABS: ALANINE AMINOTRANSFERASE 21 U/L (0-55); LIPASE 13 U/L (8-78)
--- NOTE | 2021-05-03 15:11 | ED GI ---
General Chief Complaint: Abdominal/GI Problems Stated Complaint: ABDOMINAL PAIN Nursing Triage Note: AMB TO ROOM WITH REPORTS OF ABD PAIN WITH NAUSEA Source of Information: Patient Exam Limitations: No Limitations (AJAY NAVARRO MED STUDENT) History of Present Illness Date Seen by Provider: May 03, 2021 Time Seen by Provider: 14:45 Initial Comments This is a 40 YO male presenting to the ED with abdominal pain, nausea, and vomiting for the past 2 days. Pt states the pain began sometime after going out to eat pizza. Vomiting is mostly dry heaving, but has had bilious emesis as well. No blood in vomit or stool. Notes subjective fever and chills but did not take his temperature. Took Pepto-Bismol at home with minimal improvement. States he was seen in the ED for a similar episode about 8 months ago and after workup was discharged home with instructions to follow up with surgeon for possible gallbladder workup. However, pt did not follow up and has not had any problems until 2 days ago. No history of abdominal surgeries. States his mother had to have her gallbladder removed. Timing/Duration: 1-2 Days Location: Epigastric, Periumbilical Radiation: No Radiation Associated Symptoms: Fever/Chills, Nausea/Vomiting (AJAY NAVARRO MED STUDENT) Allergies and Home Medications Allergies Coded Allergies: No Known Drug Allergies (Unverified , 01/27/09) Patient Home Medication List Home Medication List Reviewed: Yes (HÉCTOR SINGH MD) Hydrocodone Bit/Acetaminophen (Hydrocet 5-500 Capsule) 1 Each Capsule, 1 EACH PO Q4H Prescribed by: GILMA NEIL MD on 03/24/091900 Ondansetron (Ondansetron Odt) 4 Mg Tab.rapdis, 4 MG PO Q8H PRN for nausea Prescribed by: HÉCTOR SINGH on 05/03/21 1549 Pantoprazole Sodium (Pantoprazole Sodium) 20 Mg Tablet.dr, 20 MG PO BID Prescribed by: CORA MARTÍNEZ on 10/10/20143 Penicillin V Potassium (Pen-Vee K) 500 Mg Tablet, 1 TAB PO TID Prescribed by: GILMA NEIL MD on 03/24/091900 Sucralfate (Carafate) 1 Gm Tablet, 1 GM PO QID Prescribed by: CORA MARTÍNEZ on 10/10/20143 Review of Systems Review of Systems Constitutional: chills, fever EENTM: No Blurred Vision, No Double Vision Respiratory: Denies Cough, Denies Shortness of Air Cardiovascular: Denies Chest Pain, Denies Edema Gastrointestinal: Abdominal Pain; Denies Constipated, Denies Diarrhea; Nausea, Vomiting Genitourinary: Denies Burning, Denies Discharge Musculoskeletal: No back pain, No neck pain Skin: no symptoms reported Psychiatric/Neurological: Denies Headache, Denies Numbness Endocrine: No Symptoms Reported Hematologic/Lymphatic: No Symptoms Reported (AJAY NAVARRO STUDENT) All Other Systems Reviewed Negative Unless Noted: Yes (Negative excepted noted.) (AJAY NAVARRO NERITES STUDENT) Past Gfgfphc-Kqhiep-Bdtccy Hx Patient Social History Tobacco Use?: Yes Smoking Status: Current Everyday Smoker E-Cig or Vaping type used: Marijuana (AJAY NAVARRO) Immunizations Up To Date Tetanus Booster (TDap): Unknown (AJAY NAVARRO) Seasonal Allergies Seasonal Allergies: No (AJAY NAVARRO) Past Medical History Surgeries: No Respiratory: No Cardiac: No Neurological: No Genitourinary: No Gastrointestinal: No Musculoskeletal: No Endocrine: No HEENT: No Cancer: No Psychosocial: Yes (SUICIDE ATTEMPT BY HANGING 09/21/18) Suicide Attempts Integumentary: No (AJAY NAVARRO STUDENT) Physical Exam Vital Signs Vital Signs - First Documented 05/03/21 14:00 Temp 36.5 Pulse 130 Resp 18 B/P (MAP) 132/108 (116) Pulse Ox 100 O2 Delivery Room Air (HÉCTOR SINGH MD) Vital Signs Capillary Refill : Greater Than 3 Seconds (AJAY NAVARRO STUDENT) Height/Weight/BMI Height: 6'2.00" Weight: 154lbs. oz. 69.433098iy; 26.00 BMI Method:Estimated General Appearance: WD/WN, mild distress HEENT: PERRL/EOMI; No scleral icterus (R), No scleral icterus (L) Neck: supple, normal inspection Respiratory: chest non-tender, lungs clear, normal breath sounds, no respiratory distress, no accessory muscle use Cardiovascular: no edema, no murmur, tachycardia Gastrointestinal: soft; No distended, No guarding, No rebound; tenderness (periumbilical and epigastric) Extremities: normal range of motion, normal inspection, no pedal edema Back: no CVA tenderness; No decreased range of motion Neurologic/Psychiatric: no motor/sensory deficits, alert, normal mood/affect, oriented x 3 Skin: normal color, warm/dry (AJAY NAVARRO MED STUDENT) Procedures/Interventions Date of ETT Placement: September 22, 2018 Time of ETT Placement: 0005 (AJAY NAVARRO MED STUDENT) Progress/Results/Core Measures Results/Orders Lab Results Laboratory Tests Test 05/03/21 14:13 Range/Units White Blood Count 11.9 H 4.3-11.0 10^3/uL Red Blood Count 5.51 4.30-5.52 10^6/uL Hemoglobin 17.2 13.3-17.7 g/dL Hematocrit 49 40-54 % Mean Corpuscular Volume 88 80-99 fL Mean Corpuscular Hemoglobin 31 25-34 pg Mean Corpuscular Hemoglobin Concent 35 32-36 g/dL Red Cell Distribution Width 12.1 10.0-14.5 % Platelet Count 328 130-400 10^3/uL Mean Platelet Volume 9.3 9.0-12.2 fL Immature Granulocyte % (Auto) 0 % Neutrophils (%) (Auto) 76 H 42-75 % Lymphocytes (%) (Auto) 18 12-44 % Monocytes (%) (Auto) 5 0-12 % Eosinophils (%) (Auto) 0 0-10 % Basophils (%) (Auto) 0 0-10 % Neutrophils # (Auto) 9.1 H 1.8-7.8 10^3/uL Lymphocytes # (Auto) 2.1 1.0-4.0 10^3/uL Monocytes # (Auto) 0.6 0.0-1.0 10^3/uL Eosinophils # (Auto) 0.0 0.0-0.3 10^3/uL Basophils # (Auto) 0.1 0.0-0.1 10^3/uL Immature Granulocyte # (Auto) 0.1 0.0-0.1 10^3/uL Sodium Level 137 135-145 MMOL/L Potassium Level 3.8 3.6-5.0 MMOL/L Chloride Level 101 98-107 MMOL/L Carbon Dioxide Level 22 21-32 MMOL/L Anion Gap 14 5-14 MMOL/L Blood Urea Nitrogen 6 L 7-18 MG/DL Creatinine 0.98 0.60-1.30 MG/DL Estimat Glomerular Filtration Rate 85 BUN/Creatinine Ratio 6 Glucose Level 101 70-105 MG/DL Calcium Level 10.0 8.5-10.1 MG/DL Corrected Calcium 8.5-10.1 MG/DL Total Bilirubin 1.1 H 0.1-1.0 MG/DL Aspartate Amino Transf (AST/SGOT) 17 5-34 U/L Alanine Aminotransferase (ALT/SGPT) 21 0-55 U/L Alkaline Phosphatase 84 40-136 U/L Total Protein 8.4 H 6.4-8.2 GM/DL Albumin 4.8 H 3.2-4.5 GM/DL Lipase 13 8-78 U/L (HÉCTOR SINGH MD) My Orders Orders - HÉCTOR SINGH MD Ed Iv/Invasive Line Start (05/03/21 14:37) Cbc With Automated Diff (05/03/21 14:37) Comprehensive Metabolic Panel (05/03/21 14:37) Lipase (05/03/21 14:37) Ondansetron Injection (Zofran Injectio (05/03/21 14:45) Ketorolac Injection (Toradol Injection) (05/03/21 14:45) Ns Iv 1000 Ml (Sodium Chloride 0.9%) (05/03/21 14:45) Antacid Suspension (Mylanta Suspension (05/03/21 15:30) Lidocaine 2% Viscous 15 Ml (Xylocaine Vi (05/03/21 15:30) Sucralfate Tablet (Carafate Tablet) (05/03/21 15:30) (HÉCTOR SINGH MD) Medications Given in ED (HÉCTOR SINGH MD) Vital Signs/I&O 05/03/21 05/03/21 14:00 17:00 Temp 36.5 Pulse 130 100 Resp 18 18 B/P (MAP) 132/108 (116) 154/109 Pulse Ox 100 100 O2 Delivery Room Air Room Air (HÉCTOR SINGH MD) Blood Pressure Mean: 116 Progress Progress Note #1: Time: 15:40 Progress Note Tacho is a 40-year-old who presents to the emergency department today with a chief complaint of epigastric abdominal pain. Onset about 2 days ago with associated nausea, vomiting/dry heaves. Patient states that he is taken a little bit of Tums to try and alleviate his symptoms but other than that not much else. He does endorse subjective fevers and chills. States he had similar symptoms about 8 months ago, had a work-up here in the emergency department was advised to follow-up but as his symptoms improved he never did. He does endorse some depressive symptoms. Denies suicidal or homicidal ideation. He seems to be quite tearful when talking about this. States that he does smoke cigarettes as well as marijuana approximately once a month. Has decreased his overall caffeine use. Likely does not have great appetite. Denies problems with bowel or bladder. No previous abdominal surgeries. Labs reviewed and unremarkable, minimal elevation in his total white blood cell count no abnormalities noted on liver functions or other chemistries. Lipase is normal. Exam is benign. Patient is treated in the emergency department with Zofran, Toradol and a GI cocktail. Will discuss with him plan of care moving forward to include follow-up with [facility], acid reducing medications such as hgor-ziy-[id number] Prilosec or Pepcid, smoking cessation, mental health follow-up through [facility]. Progress Note #2: Time: 16:34 Progress Note Patient feels better after medications. I reviewed all of the findings with him today, we discussed a plan of care. I went over medication recommendations as well as smoking cessation. Gave him some mental health resources. He was very appreciative. Vital signs remained stable, again he feels better. No concerning findings that would require further investigation with imaging here in the emergency department. Return precautions have been given, all questions sought and answered. (HÉCTOR SINGH MD) Departure Impression Primary Impression: Abdominal pain Qualified Codes: R10.13 - Epigastric pain Additional Impressions: Gastritis Qualified Codes: K29.00 - Acute gastritis without bleeding Depression Qualified Codes: F32.A - Depression, unspecified Disposition: 01 HOME, SELF-CARE Condition: Stable Departure-Patient Inst. Decision time for Depature: 15:45 (HÉCTOR SINGH MD) Referrals: [facility] [place] NO,LOCAL PHYSICIAN (PCP) Primary Care Physician Patient Instructions: Gastritis (DC) Add. Discharge Instructions: Follow a bland diet for the next 24 hours. Drink plenty of fluids to stay well hydrated. You should try and cut back on smoking. Over the counter (generic) prilosec, daily for the next 4-6 weeks. TUMS as needed 3 times a day. Avoid taking Ibuprofen on an empty stomach for pain - it could worsen symptoms. Zofran (a prescription) has been sent to your pharmacy to take every 8 hours for nausea. Come back to the Emergency Department for any worse pain, especially with fever, vomiting not controlled by medication, vomiting blood or passing blood in your stool. Mental Health resources to help manage your depression are available through [facility]. Therapists and providers are there for help with therapy and medication management if needed. Fees for service are usually assessed based on ability to pay/income. [facility] [phone] [address] [place] [address] http://www.lolis.org/ https://www.Fangdd.com/[place]/ https://www.samhsa.gov/find-help/national-helpline https://www.nih.gov/health-information/ygwuxu-mseu-mroer Scripts Ondansetron (Ondansetron Odt) 4 Mg Tab.rapdis 4 MG PO Q8H PRN for nausea, #20 TAB Prov: HÉCTOR SINGH MD 05/03/21 Verification and Attestation of Medical Student E/M Service A medical student performed and documented this service in my presence. I reviewed and verified all information documented by the medical student and made modifications to such information, when appropriate. I personally performed the physical exam and medical decision making. Héctor Singh, May 03, 2021,15:54 (HÉCTOR SINGH MD) AJAY NAVARRO MED STUDENT May 03, 2021 15:11 HÉCTOR SINGH MD May 03, 2021 15:42
[2021-05-03] MEDS ORDERED: SUCRALFATE 1 GM (CARAFATE) TAB PO ONE (15:30)
[2021-05-03] MEDS ORDERED: ANTACID SUSP 30 ML UDC (MYLANTA) PO ONE (15:30)
[2021-05-03] MEDS ORDERED: LIDOCAINE 2% VISCOUS 15 ML UDC PO ONE (15:30)
[2021-05-03] MEDS ORDERED: ONDA4TAB11 PO (15:49)
[2021-05-03 17:00] VITALS: BP 154/109
== END 2021-05-03 17:00 | disposition home or self-care (01) ==
LOC: EDUNIT# 13:54 → ER 13:57
DX: K29.70 Gastritis, unspecified, without bleeding (principal); F32.9 Major depressive disorder, single episode, unspecified; R00.0 Tachycardia, unspecified; F17.290 Nicotine dependence, other tobacco product, uncomplicated
CPT/HCPCS: 36415; 80053; 83690; 85025; 96374; 96375

== ENCOUNTER 2022-09-08 19:43 | Emergency (ER) | payer SELFPAY ==
[~2022-09-08 19:43] MED LIST changes: +ONDA4TAB11 PO
[2022-09-08 20:35] LABS: BASOPHILS # (AUTO) 0.1 10^3/uL (0.0-0.1); BASOPHILS % (AUTO) 1 % (0-10); EOSINOPHILS # (AUTO) 0.1 10^3/uL (0.0-0.3); EOSINOPHILS % (AUTO) 1 % (0-10); HEMATOCRIT 48 % (40-54); HEMOGLOBIN 16.8 g/dL (13.3-17.7); LYMPHOCYTES % (AUTO) 29 % (12-44); MEAN CORPUSCULAR HEMOGLOBIN 31 pg (25-34); MEAN CORPUSCULAR HGB CONC 35 g/dL (32-36); MEAN CORPUSCULAR VOLUME 87 fL (80-99); MEAN PLATELET VOLUME 8.9 fL (9.0-12.2); MONOCYTES # (AUTO) 0.9 10^3/uL (0.0-1.0); MONOCYTES % (AUTO) 8 % (0-12); NEUTROPHILS # (AUTO) 6.4 10^3/uL (1.8-7.8); NEUTROPHILS % (AUTO) 61 % (42-75); PLATELET COUNT 327 10^3/uL (130-400); WHITE BLOOD COUNT 10.4 10^3/uL (4.3-11.0)
[2022-09-08] MEDS ORDERED: ONDANSETRON 4 MG/2 ML (SDV) Z0FRAN IVP ONE (20:45)
[2022-09-08] MEDS ORDERED: LACTATED RINGERS 1,000 ML IV ONE (20:45)
[2022-09-08] MEDS ORDERED: PANTOPRAZOLE 40 MG (PROTONIX) VIAL IV ONE (20:45)
[2022-09-08 21:02] LABS: ALANINE AMINOTRANSFERASE 14 U/L (0-55); ALBUMIN 4.9 GM/DL (3.2-4.5); ALKALINE PHOSPHATASE 77 U/L (40-136); AMYLASE 27 U/L (25-125); BILIRUBIN,TOTAL 1.1 MG/DL (0.1-1.0); BUN/CREATININE RATIO 10; CARBON DIOXIDE 19 MMOL/L (21-32); CHLORIDE 103 MMOL/L (98-107); CREATININE SERUM 0.88 MG/DL (0.60-1.30); GFR ESTIMATED 111; GLUCOSE 92 MG/DL (70-105); LIPASE 17 U/L (8-78); MAGNESIUM 2.1 MG/DL (1.6-2.4); POTASSIUM 3.7 MMOL/L (3.6-5.0); SODIUM 137 MMOL/L (135-145); TOTAL PROTEIN 8.1 GM/DL (6.4-8.2)
--- NOTE | 2022-09-08 21:22 | ED Abdominal Pain ---
General Chief Complaint: Abdominal/GI Problems Stated Complaint: ABDOMINAL PAIN Nursing Triage Note: PT AMB TO RM 1 WITH CC OF UPPER ABD PAIN SINCE THIS AM. PT STATES "PUSHED ON UPPER ABD AND BEGAN TO HAVE PAIN." PT REPORTS NAUSEA AND VOMITING SINCE THIS AM. PT DENIES MEDS. Source of Information: Patient (SPEECH RAPID AND ERRATIC) History of Present Illness Date Seen by Provider: Sep 08, 2022 Time Seen by Provider: 20:18 Initial Comments PT ARRIVES VIA POV FROM HOME C/O UPPER ABDOMINAL / EPIGASTRIC PAIN FOR THE LAST 3-4 DAYS. Allergies and Home Medications Allergies Coded Allergies: No Known Drug Allergies (Unverified , 01/27/09) Patient Home Medication List Hydrocodone Bit/Acetaminophen (Hydrocet 5-500 Capsule) 1 Each Capsule, 1 EACH PO Q4H Prescribed by: GILMA NEIL MD on 03/24/09 190 Ondansetron (Ondansetron Odt) 4 Mg Tab.rapdis, 4 MG PO Q8H PRN for nausea Prescribed by: HÉCTOR SINGH on 05/03/21 1549 Pantoprazole Sodium (Pantoprazole Sodium) 20 Mg Tablet.dr, 20 MG PO BID Prescribed by: CORA MARTÍNEZ on 10/10/20 014 Penicillin V Potassium (Pen-Vee K) 500 Mg Tablet, 1 TAB PO TID Prescribed by: GILMA NEIL MD on 03/24/09 190 Sucralfate (Carafate) 1 Gm Tablet, 1 GM PO QID Prescribed by: CORA MARTÍNEZ on 10/10/20 0144 Past Cplquqf-Amagzd-Urhegk Hx Patient Social History Tobacco Use?: Yes Tobacco type used: Cigarettes Substance use?: Yes Substance type: Marijuana Pt feels they are or have been: No Immunizations Up To Date Tetanus Booster (TDap): Unknown Seasonal Allergies Seasonal Allergies: No Past Medical History Surgeries: No Respiratory: No Cardiac: No Neurological: No Genitourinary: No Gastrointestinal: No Musculoskeletal: No Endocrine: No HEENT: No Cancer: No Psychosocial: Yes (SUICIDE ATTEMPT BY HANGING 09/21/18) Suicide Attempts Integumentary: No Physical Exam Vital Signs Vital Signs - First Documented 09/08/22 20:15 Pulse 81 Resp 16 B/P (MAP) 155/115 (128) Pulse Ox 98 O2 Delivery Room Air Capillary Refill : Less Than 3 Seconds Height/Weight/BMI Height: 6'2.00" Weight: 154lbs. oz. [id number]; 26.00 BMI Method:Estimated Procedures/Interventions Date of ETT Placement: September 22, 2018 Time of ETT Placement: 0005 Progress/Results/Core Measures Results/Orders Lab Results Laboratory Tests Test 09/08/22 20:25 09/08/22 22:15 Range/Units White Blood Count 10.4 4.3-11.0 10^3/uL Red Blood Count 5.45 4.30-5.52 10^6/uL Hemoglobin 16.8 13.3-17.7 g/dL Hematocrit 48 40-54 % Mean Corpuscular Volume 87 80-99 fL Mean Corpuscular Hemoglobin 31 25-34 pg Mean Corpuscular Hemoglobin Concent 35 32-36 g/dL Red Cell Distribution Width 12.3 10.0-14.5 % Platelet Count 327 130-400 10^3/uL Mean Platelet Volume 8.9 L 9.0-12.2 fL Immature Granulocyte % (Auto) 0 % Neutrophils (%) (Auto) 61 42-75 % Lymphocytes (%) (Auto) 29 12-44 % Monocytes (%) (Auto) 8 0-12 % Eosinophils (%) (Auto) 1 0-10 % Basophils (%) (Auto) 1 0-10 % Neutrophils # (Auto) 6.4 1.8-7.8 10^3/uL Lymphocytes # (Auto) 3.0 1.0-4.0 10^3/uL Monocytes # (Auto) 0.9 0.0-1.0 10^3/uL Eosinophils # (Auto) 0.1 0.0-0.3 10^3/uL Basophils # (Auto) 0.1 0.0-0.1 10^3/uL Immature Granulocyte # (Auto) 0.0 0.0-0.1 10^3/uL Sodium Level 137 135-145 MMOL/L Potassium Level 3.7 3.6-5.0 MMOL/L Chloride Level 103 98-107 MMOL/L Carbon Dioxide Level 19 L 21-32 MMOL/L Anion Gap 15 H 5-14 MMOL/L Blood Urea Nitrogen 9 7-18 MG/DL Creatinine 0.88 0.60-1.30 MG/DL Estimat Glomerular Filtration Rate 111 BUN/Creatinine Ratio 10 Glucose Level 92 70-105 MG/DL Calcium Level 10.0 8.5-10.1 MG/DL Corrected Calcium 8.5-10.1 MG/DL Magnesium Level 2.1 1.6-2.4 MG/DL Total Bilirubin 1.1 H 0.1-1.0 MG/DL Aspartate Amino Transf (AST/SGOT) 15 5-34 U/L Alanine Aminotransferase (ALT/SGPT) 14 0-55 U/L Alkaline Phosphatase 77 40-136 U/L Total Protein 8.1 6.4-8.2 GM/DL Albumin 4.9 H 3.2-4.5 GM/DL Amylase Level 27 25-125 U/L Lipase 17 8-78 U/L Acetaminophen Level < 10 L 10-30 UG/ML Serum Alcohol < 10 <10 MG/DL Urine Color YELLOW Urine Clarity CLEAR Urine pH 7.0 5-9 Urine Specific [place] <=1.005 1.016-1.022 Urine Protein NEGATIVE NEGATIVE Urine Glucose (UA) NEGATIVE NEGATIVE Urine Ketones 1+ H NEGATIVE Urine Nitrite NEGATIVE NEGATIVE Urine Bilirubin NEGATIVE NEGATIVE Urine Urobilinogen 2.0 < = 1.0 MG/DL Urine Leukocyte Esterase NEGATIVE NEGATIVE Urine RBC (Auto) NEGATIVE NEGATIVE Urine RBC NONE /HPF Urine WBC NONE /HPF Urine Squamous Epithelial Cells NONE /HPF Urine Crystals NONE /LPF Urine Bacteria NEGATIVE /HPF Urine Casts NONE /LPF Urine Mucus NEGATIVE /LPF Urine Culture Indicated NO Urine Opiates Screen NEGATIVE NEGATIVE Urine Oxycodone Screen NEGATIVE NEGATIVE Urine Methadone Screen NEGATIVE NEGATIVE Urine Propoxyphene Screen NEGATIVE NEGATIVE Urine Barbiturates Screen NEGATIVE NEGATIVE Ur Tricyclic Antidepressants Screen NEGATIVE NEGATIVE Urine Phencyclidine Screen NEGATIVE NEGATIVE Urine Amphetamines Screen POSITIVE H NEGATIVE Urine Methamphetamines Screen POSITIVE H NEGATIVE Urine Benzodiazepines Screen NEGATIVE NEGATIVE Urine Cocaine Screen NEGATIVE NEGATIVE Urine Cannabinoids Screen POSITIVE H NEGATIVE My Orders Orders - YESI RICHTER DO Ed Iv/Invasive Line Start (09/08/22 20:18) Monitor-Rhythm Ecg Trace Only (09/08/22 20:18) Amylase (09/08/22 20:18) Cbc With Automated Diff (09/08/22 20:18) Comprehensive Metabolic Panel (09/08/22 20:18) Lipase (09/08/22 20:18) Magnesium (09/08/22 20:18) Ua Culture If Indicated (09/08/22 20:18) Ed Iv/Invasive Line Start (09/08/22 20:18) Drug Screen Stat (Urine) (09/08/22 20:42) Ed Iv/Invasive Line Start (09/08/22 20:42) Lactated Ringers (Lr 1000 Ml Iv Solution (09/08/22 20:45) Ondansetron Injection (Zofran Injectio (09/08/22 20:45) Pantoprazole Injection (Protonix Injecti (09/08/22 20:45) Acetaminophen (09/08/22 20:25) Alcohol (09/08/22 20:25) Ct [facility] Chest/Noang Abd-Pelv W (09/08/22 21:11) Acute Abd Series (09/08/22 21:11) Iohexol Injection (Omnipaque 350 Mg/Ml 1 (09/08/22 21:45) Received Contrast (Hold Metformin- Contr (09/08/22 21:45) Ns (Ivpb) (Sodium Chloride 0.9% Ivpb Bag (09/08/22 21:45) Medications Given in ED Current Medications Medications Dose Ordered Sig/Brandyn Route Start Time Stop Time Status Last Admin Dose Admin Iohexol 100 ml ONCE ONCE IV 09/08/22 21:45 09/08/22 21:46 DC 09/08/22 21:32 72 ML Lactated Ringer's 1,000 ml @ 0 mls/hr Q0M ONCE IV 09/08/22 20:45 09/08/22 20:46 DC 09/08/22 21:12 1,000 MLS/HR Ondansetron HCl 4 mg ONCE ONCE IVP 09/08/22 20:45 09/08/22 20:46 DC 09/08/22 21:11 4 MG Pantoprazole 40 mg ONCE ONCE IV 09/08/22 20:45 09/08/22 20:46 DC 09/08/22 21:11 40 MG Sodium Chloride 100 ml ONCE ONCE IV 09/08/22 21:45 09/08/22 21:46 DC 09/08/22 21:33 80 ML Vital Signs/I&O 09/08/22 20:15 Pulse 81 Resp 16 B/P (MAP) 155/115 (128) Pulse Ox 98 O2 Delivery Room Air Blood Pressure Mean: 128 Departure Impression Primary Impression: Abdominal pain Additional Impression: Illicit drug use Disposition: HOME, SELF-CARE Condition: Improved Departure-Patient Inst. Decision time for Depature: 22:50 Referrals: NO,LOCAL PHYSICIAN (PCP) Primary Care Physician Patient Instructions: Abdominal Pain, Adult ED, Substance Use Disorder ED Add. Discharge Instructions: CLEAR LIQUIDS--WATER, BROTH, JELLO, GATORADE BRATS DIET--BANANAS, RICE, APPLESAUCE, TOAST, SALTINES NO DRUGS OR ALCOHOL FOLLOW UP WITH DRJustine OF CHOICE IN 2-3 DAYS IF NO BETTER, RETURN TO ER IF SYMPTOMS WORSEN All discharge instructions reviewed with patient and/or family. Voiced understanding. Scripts Dicyclomine HCl (Dicyclomine HCl) 20 Mg Tablet 20 MG PO Q6H for Abdominal Pain, #20 TAB Prov: CHERYL RICHTERA K DO 09/08/22 Ondansetron (Ondansetron Odt) 4 Mg Tab.rapdis 4 MG PO Q4H for Nausea/Vomiting, #10 TAB Prov: ROBERYESI K DO 09/08/22 Pantoprazole Sodium (Protonix) 40 Mg Tablet.dr 40 MG PO DAILY, #15 TAB Prov: ROBER,YESI K DO 09/08/22 ROBER,YESI K DO Sep 08, 2022 21:22
[2022-09-08 21:33] LABS: ACETAMINOPHEN < 10 UG/ML (10-30)
[2022-09-08] MEDS ORDERED: NS 100 ML (IVPB) BAG IV ONE (21:45)
[2022-09-08] MEDS ORDERED: IOHEXOL 350 MG/ML 100 ML (OMNIPAQUE 350) VIAL IV ONE (21:45)
[2022-09-08] MEDS ORDERED: HOLD METFORMIN - RECEIVED CONTRAST 20 ML VIAL IV SCH (21:45)
--- NOTE | 2022-09-08 21:55 | Diagnostic Imaging Report ---
INDICATION: CP, ABD PAIN, N/V CTA chest, abdomen and pelvis Thin axial sections through the chest, abdomen and pelvis are obtained following intravenous contrast bolus. Multiplanar MIP images were reconstructed and reviewed. All CT scans use one or more of the following dose optimizing techniques: automated exposure control, MA and/or KvP adjustment based on patient size and exam type or iterative reconstruction. There is a large bullae at the left medial apex. The lungs are otherwise clear. There are no effusions or pneumothoraces. There are no pulmonary emboli. There is no right ventricular strain. Thoracic aorta is unremarkable. The liver and gallbladder appear normal. Pancreas is unremarkable. The spleen is normal. Adrenals are normal. Kidneys appear normal. Small bowel is not dilated. Colon is unremarkable. There is no intraperitoneal free air or free fluid. Urinary bladder is normal. IMPRESSION: No acute abnormality is seen in the chest, abdomen or pelvis. Dictated by: Dictated on workstation # [id number]
--- NOTE | 2022-09-08 22:16 | Diagnostic Imaging Report ---
INDICATION: Abdominal pain PA chest, supine and upright abdominal images are obtained Lungs are clear. There is no intraperitoneal free air. Bowel gas pattern is normal. Renal collecting system appears normal. IMPRESSION: Unremarkable abdomen Dictated by: Dictated on workstation # [id number]
[2022-09-08 22:32] LABS: BILIRUBIN,URINE NEGATIVE (NEGATIVE); CLARITY,URINE CLEAR; COLOR,URINE YELLOW; GLUCOSE, URINE (UA) NEGATIVE (NEGATIVE); KETONES,URINE 1+ (NEGATIVE); LEUKOCYTE ESTERASE ,URINE NEGATIVE (NEGATIVE); NITRITE,URINE NEGATIVE (NEGATIVE); PROTEIN,URINE NEGATIVE (NEGATIVE)
[2022-09-08 22:46] LABS: AMPHETAMINE SCREEN, URINE POSITIVE (NEGATIVE); BARBITURATE SCREEN URINE NEGATIVE (NEGATIVE); BENZODIAZEPINES SCREEN URINE NEGATIVE (NEGATIVE); CANNABINOID SCREEN, URINE POSITIVE (NEGATIVE); COCAINE SCREEN URINE NEGATIVE (NEGATIVE); METHADONE STAT NEGATIVE (NEGATIVE); OPIATE SCREEN URINE NEGATIVE (NEGATIVE); OXYCODONE STAT NEGATIVE (NEGATIVE); PROPOXYPHENE STAT NEGATIVE (NEGATIVE); TRICYCLIC ANTIDEPRESSANTS SCRE NEGATIVE (NEGATIVE)
[2022-09-08 22:48] LABS: BACTERIA,URINE NEGATIVE /HPF
[2022-09-08] MEDS ORDERED: DICY20TA PO (22:54)
[2022-09-08] MEDS ORDERED: PANT40TA2 PO (22:54)
[2022-09-08] MEDS ORDERED: ONDA4TAB11 PO (22:54)
[2022-09-08 23:04] VITALS: BP 140/103
== END 2022-09-08 23:04 | disposition home or self-care (01) ==
LOC: EDUNIT# 19:43 → ER 19:45
DX: R10.13 Epigastric pain (principal); R11.2 Nausea with vomiting, unspecified; F19.90 Other psychoactive substance use, unspecified, uncomplicated; F17.210 Nicotine dependence, cigarettes, uncomplicated
CPT/HCPCS: 71275; 74022; 74177; 80053; 80306; 81000; 82150; 83690; 83735; 85025; 99284; G0480 ×2; 36415; 80320; 80329